=== PATIENT | male | born 2000 | race Caucasian/White ===

== ENCOUNTER 2020-10-27 07:07 | Emergency (ER) | payer OTHER ==
[~2020-10-27] VITALS: Ht 185.4 cm; Wt 72.6 kg
[2020-10-27] MEDS ORDERED: BACTRIM DS TAB1 EACH PO (07:46)
[2020-10-27 07:56] VITALS: BP 131/62
== END 2020-10-27 07:57 | disposition home or self-care (01) ==
LOC: M.ERS 07:07
DX: L03.113 Cellulitis of right upper limb (principal); W57.XXXA Bitten or stung by nonvenomous insect and other nonvenomous arthropods, initial encounter; Y93.89 Activity, other specified; Y92.89 Other specified places as the place of occurrence of the external cause; Y99.8 Other external cause status